=== PATIENT | male | born 1970 | race Caucasian/White ===

== ENCOUNTER → 2017-12-15 14:41 | Outpatient (CLI) | payer OTHER, SELFPAY ==
[2017-12-15 15:39] VITALS: BP 116/76; PULSE 71; RESP 18; TEMP 37.3; O2SAT 99; BMI 31.4
[2017-12-15 16:11] LABS: PTHIN 36.5 pg/mL (18.4-80.1)
[2017-12-15 16:12] LABS: Vitamin D,25 Hydroxy 44.9 ng/mL (19.95-100.01)
[2017-12-15 16:14] LABS: AST(SGOT) 33 U/L (15-37); Alanine Aminotransfer ALT/SGPT 59 U/L (16-61); Alkaline Phosphatase 91 U/L (45-117); Anion Gap 10 (5-15); BUN 21 mg/dL (7-18); BUN/Creat Ratio 34.4 RATIO (10-20); Calcium,Total 8.9 mg/dL (8.5-10.1); Chloride 103 mmol/L (98-107); Creatinine, Serum 0.61 mg/dL (0.70-1.30); EST Glomerular Filtration Rate 150 mL/min (>60); Est Glom Filt Rate - Afr Amer 182 mL/min (>60); Estimated Creatinine Clearance 129.66 ml/min; Globulin 3.9 g/dL (2.2-4.2); Glucose 108 mg/dL (74-106); LDH 144 U/L (87-241); Protein, Total 7.9 g/dL (6.4-8.2); Sodium Level 138 mmol/L (136-145)
[2017-12-18 19:28] LABS: (24 HR) Urine Calcium 252.3 mg/24 HR (42.0-353.0); 24HR UR TOTAL VOLUME 2175 ml; Calcium Urine pH Range 2; Urine Calcium (Random) 11.6 (Not Estab.)
[2017-12-18 19:28] LABS: 24HR. Urine Creatinine 1.14 g/24 HR (0.90-2.10)
[2017-12-21 12:08] LABS: Testosterone, Free 13.95 ng/dL (5.00-21.00)
[2017-12-21 12:38] LABS: Testosterone, % Free 2.56 % (1.50-4.20); Testosterone, Total 545 ng/dL (264-916)
== END ==
PROVIDERS: Internal Medicine Endocrinology, Diabetes & Metabolism; Visit Provider Internal Medicine Gastroenterology
DX: E83.110 Hereditary hemochromatosis (principal); E29.1 Testicular hypofunction; E55.9 Vitamin D deficiency, unspecified; M81.0 Age-related osteoporosis without current pathological fracture
CPT/HCPCS: 80053; 82306; 82340; 82570; 83615; 83970; 84402; 84403; 99195

== ENCOUNTER → 2017-12-29 14:27 | Outpatient (CLI) | payer OTHER, SELFPAY ==
[2017-12-29 15:11] VITALS: TEMP 37.2
== END ==
PROVIDERS: Family Provider Family Medicine; PCP Family Medicine; Visit Provider Internal Medicine Gastroenterology
DX: E83.110 Hereditary hemochromatosis (principal)
CPT/HCPCS: 99195

== ENCOUNTER → 2018-01-12 14:41 | Outpatient (CLI) | payer OTHER, SELFPAY ==
[2018-01-12 14:52] VITALS: BP 109/73; PULSE 71; RESP 18; TEMP 35.7; O2SAT 97; BMI 31.4
[2018-01-12 15:31] VITALS: BP 119/65; PULSE 74; RESP 18; TEMP 36.2; O2SAT 97
== END ==
PROVIDERS: Family Provider Family Medicine; PCP Family Medicine; Visit Provider Internal Medicine Gastroenterology
DX: E83.110 Hereditary hemochromatosis (principal)
CPT/HCPCS: 99195

== ENCOUNTER → 2018-01-26 15:19 | Outpatient (CLI) | payer OTHER, SELFPAY ==
[2018-01-26 16:02] VITALS: BP 121/42; PULSE 79; RESP 18; TEMP 36.7; O2SAT 98
== END ==
PROVIDERS: Family Provider Family Medicine; PCP Family Medicine; Visit Provider Internal Medicine Gastroenterology
DX: E83.110 Hereditary hemochromatosis (principal)
CPT/HCPCS: 99195; A4216

== ENCOUNTER → 2018-02-09 14:00 | Outpatient (CLI) | payer OTHER, SELFPAY ==
[2018-02-09 14:10] VITALS: BP 122/78; PULSE 73; RESP 18; TEMP 36.6; O2SAT 100
[2018-02-09 14:46] LABS: Hematocrit 35.4 % (40-54); Hemoglobin 12.3 g/dl (13.0-16.5); Mean Corp Hgb Conc 34.7 g/gl (32-36); Mean Corpuscular Hgb 35.1 pg (27.0-32.0); Mean Corpuscular Volume 101.1 fL (80-94); Mean Platelet Vol. 10.5 fl (6.2-12.0); Platelet Count 146 K/mm3 (150-450); RBC Distribution Width CV 13.1 % (11.6-14.6); RBC Distribution Width SD 47.3 fl (35.1-43.9); White Blood Count 7.8 K/mm3 (4.4-11.0)
[2018-02-09 14:49] LABS: Scan Indicated on CBC? Y/N NO
[2018-02-09 15:15] LABS: AST(SGOT) 28 U/L (15-37); Alanine Aminotransfer ALT/SGPT 44 U/L (16-61); Albumin, Serum 3.7 g/dL (3.2-5.0); Alkaline Phosphatase 96 U/L (45-117); Anion Gap 7 (5-15); BUN 23 mg/dL (7-18); BUN/Creat Ratio 28.8 RATIO (10-20); Calcium,Total 8.6 mg/dL (8.5-10.1); Chloride 102 mmol/L (98-107); EST Glomerular Filtration Rate 101 mL/min (>60); Est Glom Filt Rate - Afr Amer 123 mL/min (>60); Ferritin 384 ng/mL (26-388); Globulin 3.7 g/dL (2.2-4.2); Glucose 124 mg/dL (74-106); Iron 127 ug/dL (65-175); Iron Binding Capacity,Total 286 ug/dL (250-450); PERCENT IRON SATURATION 44.4 % (15.0-55.0); Potassium 4.3 mmol/L (3.5-5.1); Protein, Total 7.4 g/dL (6.4-8.2); Sodium Level 137 mmol/L (136-145)
== END ==
PROVIDERS: Family Provider Family Medicine; PCP Family Medicine; Visit Provider Internal Medicine Gastroenterology
DX: E83.110 Hereditary hemochromatosis (principal); E83.19 Other disorders of iron metabolism; R94.5 Abnormal results of liver function studies
CPT/HCPCS: 80053; 82728; 83540; 83550; 85027; 99195; A4216

== ENCOUNTER → 2018-02-23 14:00 | Outpatient (CLI) | payer OTHER, SELFPAY ==
[2018-02-23 14:12] VITALS: BP 115/70; PULSE 78; RESP 16
== END ==
PROVIDERS: Family Provider Family Medicine; PCP Family Medicine; Visit Provider Internal Medicine Gastroenterology
DX: E83.110 Hereditary hemochromatosis (principal); E83.19 Other disorders of iron metabolism
CPT/HCPCS: 99195

== ENCOUNTER → 2018-05-24 10:20 | Outpatient (CLI) | payer SELFPAY, OTHER ==
--- NOTE | 2018-05-24 10:30 | US_ITS ---
STUDY: ABDOMINAL ULTRASOUND - RIGHT UPPER QUADRANT REASON FOR VISIT: Male, 47 years old. Hemochromatosis. TECHNIQUE: Ultrasound evaluation of the right upper quadrant was performed with real-time and static lorenzo-scale imaging. TECHNICAL QUALITY: Adequate. COMPARISON: None. FINDINGS: Liver: The liver measures 13.9 cm. There is a heterogeneous echogenicity of the liver. The bile ducts are within normal limits. There is hepatic color flow. The direction of portal flow is hepatopetal. There is no demonstrated mass lesion. Gallbladder: Normal distended gallbladder. The gallbladder wall measures 2 mm. There is a negative sonographic Garcia's sign. There is no pericholecystic fluid. There are no gallstones. Common Bile Duct (C.B.D.): The common bile duct measures 4.6 mm. Pancreas: Normal size of the head, body and proximal tail of the pancreas. The distal tail is obscured by bowel gas. There is normal echogenicity of the pancreas. There is no demonstrated pancreatic mass or cyst. Right Kidney: Normal size of the right kidney. The right kidney measures 10.6 cm. Normal renal cortex. The right cortex measures 1.6 cm. There is no demonstrated renal mass or cyst. There is no right hydronephrosis. US/Liver IMPRESSION: 1. Mild heterogeneity of the echotexture of the liver without mass or other abnormality. 2. Otherwise normal right upper quadrant ultrasound. Electronically Signed: Raymundo Jurado DO at 19:25 EDT Tel [phone], Service support ,
== END ==
PROVIDERS: Family Provider Family Medicine; PCP Family Medicine; Visit Provider Internal Medicine Hematology & Oncology
DX: E83.119 Hemochromatosis, unspecified (principal)
CPT/HCPCS: 76705

== ENCOUNTER → 2018-09-12 16:28 | Outpatient (CLI) | payer OTHER, SELFPAY ==
[2018-09-12 17:11] LABS: Absolute Lymphocyte Count 1.83 X10^3/ul (0.83-4.51); Absolute Neutrophil Count 3.3 X10^3/uL (2.0-7.7); Basophil# 0.03 X10^3/uL; Basophil% 0.5 % (0-1); Eosinophils% 6.5 % (0-5); Hematocrit 37.4 % (40-54); Hemoglobin 13.2 g/dl (13.0-16.5); Lymphocyte # 1.83 X10^3/ul (4.0); Lymphocyte % 29.8 % (19-41); Mean Corp Hgb Conc 35.3 g/gl (32-36); Mean Corpuscular Hgb 34.7 pg (27.0-32.0); Mean Corpuscular Volume 98.4 fL (80-94); Mean Platelet Vol. 10.5 fl (6.2-12.0); Monocyte# 0.55 X10^3/uL; Neutrophil # 3.31 X10^3/uL (2.7-7.7); Neutrophil % 53.9 % (47-70); Platelet Count 131 K/mm3 (150-450); RBC Distribution Width CV 13.2 % (11.6-14.6); RBC Distribution Width SD 45.8 fl (35.1-43.9); White Blood Count 6.1 K/mm3 (4.4-11.0)
[2018-09-12 17:12] LABS: POSITIVE COUNT NO; POSITIVE DIFFERENTIAL NO; POSITIVE MORPHOLOGY NO
[2018-09-12 18:00] LABS: Ferritin 259 ng/mL (26-388); Iron 257 ug/dL (65-175); Iron Binding Capacity,Total 300 ug/dL (250-450); PERCENT IRON SATURATION 85.7 % (15.0-55.0)
[2018-09-14 10:29] LABS: AFP, Tumor Marker 1.1 ng/mL (0.0-8.3)
== END ==
PROVIDERS: Family Provider Family Medicine; PCP Family Medicine; Referring Provider Internal Medicine Hematology & Oncology; Visit Provider Internal Medicine Hematology & Oncology
DX: E83.119 Hemochromatosis, unspecified (principal)
CPT/HCPCS: 36415; 82105; 82728; 83540; 83550; 85025

== ENCOUNTER → 2019-06-08 08:49 | Outpatient (CLI) | payer SELFPAY, OTHER ==
[2019-03-14 13:55] VITALS: BMI 30.7
[2019-05-16 14:35] VITALS: BMI 30.7
--- NOTE | 2019-06-08 08:57 | US_ITS ---
STUDY: ABDOMINAL ULTRASOUND - RIGHT UPPER QUADRANT REASON FOR VISIT: Male, 48 years old. Hemochromatosis TECHNIQUE: Ultrasound evaluation of the right upper quadrant was performed with real-time and static lorenzo-scale imaging. TECHNICAL QUALITY: Adequate. COMPARISON: 05/24/2018 FINDINGS: Liver: The liver measures 14.9 cm. There is normal echogenicity of the liver. The bile ducts are within normal limits. There is hepatic color flow. The direction of portal flow is hepatopetal. There is no demonstrated mass lesion. Gallbladder: Normal distended gallbladder. The gallbladder wall measures 2 mm. There is a negative sonographic Garcia's sign. There is no pericholecystic fluid. There are no gallstones. Common Bile Duct (C.B.D.): The common bile duct measures 4.5 mm. Pancreas: Normal size of the head, body and tail of the pancreas. There is normal echogenicity of the pancreas. There is no demonstrated pancreatic mass or cyst. Right Kidney: Normal size of the right kidney. The right kidney measures 9.3 cm. Normal renal cortex. There is no demonstrated renal mass or cyst. There is no right hydronephrosis. US/Liver IMPRESSION: Normal right upper quadrant ultrasound examination. Electronically Signed: Yamil Kenyon, at 12:58 EDT Tel , Service support ,
[2019-06-08 10:11] LABS: Absolute Neutrophil Count 2.5 X10^3/uL (2.0-7.7); Basophil# 0.03 X10^3/uL; Basophil% 0.7 % (0-1); Eosinophil# 0.28 X10^3/uL; Eosinophils% 6.4 % (0-5); Hematocrit 38.2 % (40-54); Hemoglobin 13.5 g/dL (13.0-16.5); Lymphocyte % 27.3 % (19-41); Mean Corp Hgb Conc 35.3 g/dL (32-36); Mean Corpuscular Hgb 34.4 pg (27.0-32.0); Mean Corpuscular Volume 97.4 fL (80-94); Mean Platelet Vol. 10.4 fl (6.2-12.0); Monocyte% 9.1 % (0-10); NRBC Flagged by Analyzer 0 % (0-5); Neutrophil # 2.48 X10^3/uL (2.7-7.7); Neutrophil % 56.3 % (47-70); Platelet Count 116 K/mm3 (150-450); RBC Distribution Width CV 13.3 % (11.6-14.6); RBC Distribution Width SD 47.6 fl (35.1-43.9); Red Blood Count 3.92 M/mm3 (4.6-6.2); White Blood Count 4.4 K/mm3 (4.4-11.0)
[2019-06-08 10:47] LABS: Ferritin 57 ng/mL (26-388); Iron 239 ug/dL (65-175); Iron Binding Capacity,Total 293 ug/dL (250-450); PERCENT IRON SATURATION 81.6 % (15.0-55.0)
== END ==
PROVIDERS: Family Provider Family Medicine; PCP Family Medicine; Referring Provider Internal Medicine Hematology & Oncology; Visit Provider Internal Medicine Hematology & Oncology
DX: R16.0 Hepatomegaly, not elsewhere classified (principal); E83.119 Hemochromatosis, unspecified
CPT/HCPCS: 36415; 76705; 82105; 82728; 83540; 83550; 85025

== ENCOUNTER → 2019-08-07 16:49 | Outpatient (CLI) | payer OTHER, SELFPAY ==
[2019-06-19 14:54] VITALS: BMI 31.4
[2019-08-07 18:06] LABS: Vitamin D,25 Hydroxy 59.6 ng/mL (29.95-100.01)
[2019-08-07 18:19] LABS: ALB/GLOB Ratio 1.1 RATIO (0.9-2.4); AST(SGOT) 26 U/L (15-37); Alanine Aminotransfer ALT/SGPT 39 U/L (16-61); Albumin, Serum 3.9 g/dL (3.2-5.0); Alkaline Phosphatase 105 U/L (45-117); Anion Gap 8 (5-15); BUN 17 mg/dL (7-18); BUN/Creat Ratio 23.9 RATIO (10-20); Calcium,Total 9.2 mg/dL (8.5-10.1); Chloride 103 mmol/L (98-107); Creatinine, Serum 0.71 mg/dL (0.70-1.30); EST Glomerular Filtration Rate 125 mL/min (>60); Est Glom Filt Rate - Afr Amer 151 mL/min (>60); Globulin 3.7 g/dL (2.2-4.2); Glucose 110 mg/dL (74-106); Potassium 4.1 mmol/L (3.5-5.1); Protein, Total 7.6 g/dL (6.4-8.2); Sodium Level 138 mmol/L (136-145); Thyroid Stim Hormone (TSH) 2.22 uIU/mL (0.358-3.74)
== END ==
PROVIDERS: Family Provider Family Medicine; PCP Family Medicine; Referring Provider Internal Medicine Endocrinology, Diabetes & Metabolism; Visit Provider Internal Medicine Endocrinology, Diabetes & Metabolism
DX: E04.9 Nontoxic goiter, unspecified (principal); M81.0 Age-related osteoporosis without current pathological fracture; E55.9 Vitamin D deficiency, unspecified
CPT/HCPCS: 36415; 80053; 82306; 84443

== ENCOUNTER → 2019-09-04 13:56 | Outpatient (CLI) | payer OTHER, SELFPAY ==
[2019-06-19 14:54] VITALS: BMI 31.4
[2019-09-04] MEDS: Zoledronic Acid 5 MG 100 ML 300 MG IV (15:15)
== END ==
PROVIDERS: Family Provider Family Medicine; PCP Family Medicine; Referring Provider Internal Medicine Endocrinology, Diabetes & Metabolism; Visit Provider Internal Medicine Endocrinology, Diabetes & Metabolism
DX: M81.0 Age-related osteoporosis without current pathological fracture (principal)
CPT/HCPCS: 96365; J3489

== ENCOUNTER → 2019-10-10 16:25 | Outpatient (CLI) | payer OTHER, SELFPAY ==
[2019-09-04 15:16] VITALS: BMI 31.4
[2019-10-10 17:38] LABS: Absolute Lymphocyte Count 2.19 X10^3/uL (0.83-4.51); Absolute Neutrophil Count 5.3 X10^3/uL (2.0-7.7); Basophil# 0.06 X10^3/uL; Basophil% 0.7 % (0-1); Eosinophil# 0.25 X10^3/uL; Eosinophils% 2.9 % (0-5); Hematocrit 41.2 % (40-54); Hemoglobin 14.5 g/dL (13.0-16.5); Lymphocyte # 2.19 X10^3/ul (4.0); Lymphocyte % 25.3 % (19-41); Mean Corp Hgb Conc 35.2 g/dL (32-36); Mean Corpuscular Hgb 34.1 pg (27.0-32.0); Mean Corpuscular Volume 96.9 fL (80-94); Mean Platelet Vol. 10.2 fl (6.2-12.0); Monocyte# 0.73 X10^3/uL; Monocyte% 8.4 % (0-10); NRBC Flagged by Analyzer 0 % (0-5); Neutrophil # 5.25 X10^3/uL (2.7-7.7); Neutrophil % 60.8 % (47-70); Platelet Count 178 K/mm3 (150-450); RBC Distribution Width CV 13.1 % (11.6-14.6); RBC Distribution Width SD 46.5 fl (35.1-43.9); Red Blood Count 4.25 M/mm3 (4.6-6.2); White Blood Count 8.6 K/mm3 (4.4-11.0)
[2019-10-10 18:11] LABS: Ferritin 34 ng/mL (26-388); Iron 97 ug/dL (65-175); Iron Binding Capacity,Total 311 ug/dL (250-450); PERCENT IRON SATURATION 31.2 % (15.0-55.0)
== END ==
PROVIDERS: Family Provider Family Medicine; PCP Family Medicine; Referring Provider Internal Medicine Hematology & Oncology; Visit Provider Internal Medicine Hematology & Oncology
DX: E83.119 Hemochromatosis, unspecified (principal)
CPT/HCPCS: 36415; 82728; 83540; 83550; 85025

== ENCOUNTER → 2019-11-16 08:45 | Outpatient (CLI) | payer OTHER, SELFPAY ==
[2019-10-16 14:12] VITALS: BMI 31.5
[2019-11-16 09:41] LABS: Absolute Lymphocyte Count 1.09 X10^3/uL (0.83-4.51); Absolute Neutrophil Count 2.4 X10^3/uL (2.0-7.7); Basophil# 0.03 X10^3/uL; Basophil% 0.7 % (0-1); Eosinophil# 0.18 X10^3/uL; Eosinophils% 4.4 % (0-5); Hematocrit 37.8 % (40-54); Hemoglobin 13.4 g/dL (13.0-16.5); Lymphocyte # 1.09 X10^3/ul (4.0); Lymphocyte % 26.4 % (19-41); Mean Corp Hgb Conc 35.4 g/dL (32-36); Mean Corpuscular Hgb 33.7 pg (27.0-32.0); Mean Platelet Vol. 10.5 fl (6.2-12.0); Monocyte# 0.43 X10^3/uL; Monocyte% 10.4 % (0-10); NRBC Flagged by Analyzer 0 % (0-5); Neutrophil # 2.38 X10^3/uL (2.7-7.7); Neutrophil % 57.6 % (47-70); Platelet Count 125 K/mm3 (150-450); RBC Distribution Width CV 12.9 % (11.6-14.6); RBC Distribution Width SD 44.9 fl (35.1-43.9); Red Blood Count 3.98 M/mm3 (4.6-6.2); White Blood Count 4.1 K/mm3 (4.4-11.0)
[2019-11-16 10:12] LABS: Ferritin 46 ng/mL (26-388); Iron 161 ug/dL (65-175); Iron Binding Capacity,Total 333 ug/dL (250-450); PERCENT IRON SATURATION 48.3 % (15.0-55.0)
== END ==
PROVIDERS: Family Provider Family Medicine; PCP Family Medicine; Referring Provider Internal Medicine Hematology & Oncology; Visit Provider Internal Medicine Hematology & Oncology
DX: E83.119 Hemochromatosis, unspecified (principal)
CPT/HCPCS: 36415; 82728; 83540; 83550; 85025

== ENCOUNTER → 2019-11-27 10:31 | Outpatient (CLI) | payer OTHER, SELFPAY ==
[2019-11-27 10:12] VITALS: BMI 31.4
--- NOTE | 2019-11-27 10:32 | RAD_ITS ---
STUDY: X-RAY - LEFT KNEE REASON FOR EXAM: Pain, no specific injury. TECHNIQUE: 4 view(s) of the knee. COMPARISON: None. FINDINGS: There is a medial femorotibial compartment arthroplasty with chronic appearing depression of the medial tibial plateau without demonstrated periprosthetic fracture or prosthetic loosening. There are marginal osteophytes and mild joint space narrowing of the lateral femorotibial compartment. There is a patellofemoral arthroplasty without evidence of complication. There is a small joint effusion. RAD/Knee 4 or More Views IMPRESSION: Medial femorotibial compartment arthroplasty with chronic appearing depression of the medial tibial plateau. Patellofemoral arthroplasty without evidence of complication. Mild arthrosis of the lateral femorotibial compartment. Small joint effusion. Electronically Signed: Ross Lopes MD at 15:30 EST Tel , Service support ,
--- NOTE | 2019-11-27 10:32 | RAD_ITS ---
STUDY: X-RAY - RIGHT KNEE REASON FOR EXAM: Pain, no specific injury. TECHNIQUE: 4 view(s) of the knee. COMPARISON: None. FINDINGS: There is subchondral cystic change of the medial femoral condyle. There is subchondral sclerosis of the medial tibial plateau. Normal proximal tibiofibular articulation. There are marginal osteophytes and moderate joint space narrowing of the medial femorotibial compartment. There are marginal osteophytes without joint space narrowing of the lateral femorotibial compartment. There is a unicompartmental patellofemoral arthroplasty without demonstrated complication. The soft tissue structures are unremarkable. RAD/Knee 4 or More Views IMPRESSION: Arthrosis of the medial femorotibial compartment. Patellofemoral unicompartmental arthroplasty. Electronically Signed: Ross Lopes MD at 15:23 EST Tel , Service support ,
== END ==
LOC: HPRAD 10:32
PROVIDERS: PCP Family Medicine; Referring Provider Orthopaedic Surgery; Visit Provider Orthopaedic Surgery
DX: M25.561 Pain in right knee (principal); M25.562 Pain in left knee
CPT/HCPCS: 73564

== ENCOUNTER → 2020-04-04 07:50 | Outpatient (CLI) | payer OTHER, SELFPAY ==
[2019-11-27 10:12] VITALS: BMI 31.4
[2020-04-04 08:19] LABS: Absolute Lymphocyte Count 1.08 X10^3/uL (0.83-4.51); Absolute Neutrophil Count 1.9 X10^3/uL (2.0-7.7); Basophil# 0.03 X10^3/uL; Basophil% 0.8 % (0-1); Eosinophil# 0.28 X10^3/uL; Eosinophils% 7.3 % (0-5); Hematocrit 37.7 % (40-54); Lymphocyte # 1.08 X10^3/ul (4.0); Lymphocyte % 28.3 % (19-41); Mean Corp Hgb Conc 34.5 g/dL (32-36); Mean Corpuscular Hgb 34.4 pg (27.0-32.0); Mean Corpuscular Volume 99.7 fL (80-94); Mean Platelet Vol. 10.3 fl (6.2-12.0); Monocyte# 0.49 X10^3/uL; Monocyte% 12.8 % (0-10); NRBC Flagged by Analyzer 0 % (0-5); Neutrophil # 1.92 X10^3/uL (2.7-7.7); Neutrophil % 50.3 % (47-70); Platelet Count 134 K/mm3 (150-450); RBC Distribution Width CV 14.1 % (11.6-14.6); RBC Distribution Width SD 51.3 fl (35.1-43.9); Red Blood Count 3.78 M/mm3 (4.6-6.2); White Blood Count 3.8 K/mm3 (4.4-11.0)
[2020-04-04 08:50] LABS: Ferritin 70 ng/mL (26-388); Iron 238 ug/dL (65-175); Iron Binding Capacity,Total 294 ug/dL (250-450)
[2020-04-18 11:17] LABS: AFP, Tumor Marker < 0.9 ng/mL (0.0-8.3)
== END ==
PROVIDERS: PCP Family Medicine; Visit Provider Internal Medicine Hematology & Oncology
DX: E83.119 Hemochromatosis, unspecified (principal)
CPT/HCPCS: 36415; 82105; 82677; 82728; 83540; 83550; 84702; 85025

== ENCOUNTER → 2020-06-02 16:32 | Outpatient (CLI) | payer OTHER, SELFPAY ==
[2020-04-09 14:52] VITALS: BMI 30.4
[2020-06-02 18:10] LABS: ALB/GLOB Ratio 0.9 RATIO (0.9-2.4); AST(SGOT) 23 U/L (15-37); Alanine Aminotransfer ALT/SGPT 33 U/L (16-61); Albumin, Serum 4.1 g/dL (3.2-5.0); Alkaline Phosphatase 88 U/L (45-117); Anion Gap 5 (5-15); BUN 17 mg/dL (7-18); BUN/Creat Ratio 26.4 RATIO (10-20); Calcium,Total 9.5 mg/dL (8.5-10.1); Chloride 105 mmol/L (98-107); Creatinine, Serum 0.64 mg/dL (0.70-1.30); EST Glomerular Filtration Rate 140 mL/min (>60); Est Glom Filt Rate - Afr Amer 169 mL/min (>60); Globulin 4.4 g/dL (2.2-4.2); Glucose 115 mg/dL (74-106); Potassium 3.9 mmol/L (3.5-5.1); Protein, Total 8.5 g/dL (6.4-8.2); Sodium Level 137 mmol/L (136-145)
[2020-06-02 18:22] LABS: Vitamin D,25 Hydroxy 131.7 ng/mL
== END ==
PROVIDERS: PCP Family Medicine
DX: M81.0 Age-related osteoporosis without current pathological fracture (principal); E55.9 Vitamin D deficiency, unspecified
CPT/HCPCS: 36415; 80053; 82306

== ENCOUNTER → 2020-07-04 08:22 | Outpatient (CLI) | payer SELFPAY ==
[2020-04-09 14:35] VITALS: BMI 31.4
[2020-04-09 14:52] VITALS: BMI 30.4
--- NOTE | 2020-07-04 08:41 | US_ITS ---
STUDY: ABDOMINAL ULTRASOUND - RIGHT UPPER QUADRANT REASON FOR VISIT: Male, 50 years old HEMOCHROMATOSIS, SCREENING FOR HCC TECHNIQUE: Ultrasound evaluation of the right upper quadrant was performed with real-time and static lorenzo-scale imaging. TECHNICAL QUALITY: Adequate. COMPARISON: None. FINDINGS: Liver: The liver measures 16.1 cm. There is normal echogenicity of the liver. The bile ducts are within normal limits. There is hepatic color flow. The direction of portal flow is hepatopetal. There is no demonstrated mass lesion. Gallbladder: Normal distended gallbladder. The gallbladder wall measures 2 mm. There is a negative sonographic Garcia''s sign. There is no pericholecystic fluid. There are no gallstones. Common Bile Duct (C.B.D.): The common bile duct measures 4 mm. Pancreas: Normal size of the head, body and tail of the pancreas. There is normal echogenicity of the pancreas. There is no demonstrated pancreatic mass or cyst. Right Kidney: Normal size of the right kidney. The right kidney measures 10.0 cm. Normal renal cortex. The right cortex measures 1.8 cm. There is no demonstrated renal mass or cyst. There is no right hydronephrosis. US/Liver IMPRESSION: Normal right upper quadrant ultrasound examination. Electronically Signed: Hua Brannon MD at 8:03 EDT Tel , Service support ,
[2020-07-04 09:16] LABS: Absolute Lymphocyte Count 1.03 X10^3/uL (0.83-4.51); Absolute Neutrophil Count 1.9 X10^3/uL (2.0-7.7); Basophil# 0.02 X10^3/uL; Basophil% 0.6 % (0-1); Eosinophil# 0.24 X10^3/uL; Eosinophils% 6.7 % (0-5); Hematocrit 36.8 % (40-54); Hemoglobin 12.9 g/dL (13.0-16.5); Lymphocyte # 1.03 X10^3/ul (4.0); Lymphocyte % 28.6 % (19-41); Mean Corp Hgb Conc 35.1 g/dL (32-36); Mean Corpuscular Hgb 33.5 pg (27.0-32.0); Mean Corpuscular Volume 95.6 fL (80-94); Mean Platelet Vol. 10.1 fl (6.2-12.0); Monocyte# 0.39 X10^3/uL; Monocyte% 10.8 % (0-10); NRBC Flagged by Analyzer 0 % (0-5); Neutrophil % 52.7 % (47-70); Platelet Count 111 K/mm3 (150-450); RBC Distribution Width CV 13.4 % (11.6-14.6); Red Blood Count 3.85 M/mm3 (4.6-6.2); White Blood Count 3.6 K/mm3 (4.4-11.0)
[2020-07-04 09:35] LABS: Ferritin 25 ng/mL (26-388); Iron 242 ug/dL (65-175); Iron Binding Capacity,Total 295 ug/dL (250-450)
== END ==
PROVIDERS: PCP Family Medicine; Referring Provider Internal Medicine Hematology & Oncology; Visit Provider Internal Medicine Hematology & Oncology
DX: E83.119 Hemochromatosis, unspecified (principal)
CPT/HCPCS: 36415; 76705; 82105; 82677; 82728; 83540; 83550; 84702; 85025

== ENCOUNTER → 2020-08-22 08:36 | Outpatient (CLI) | payer OTHER, SELFPAY ==
[2020-08-13 14:52] VITALS: BMI 31.3
[2020-08-22 09:17] LABS: Anion Gap 7 (5-15); BUN 17 mg/dL (7-18); Chloride 103 mmol/L (98-107); Creatinine, Serum 0.77 mg/dL (0.70-1.30); EST Glomerular Filtration Rate 113 mL/min (>60); Est Glom Filt Rate - Afr Amer 137 mL/min (>60); Glucose 237 mg/dL (74-106); Potassium 4.3 mmol/L (3.5-5.1); Sodium Level 136 mmol/L (136-145)
[2020-08-22 09:28] LABS: Vitamin D,25 Hydroxy 65.9 ng/mL
== END ==
PROVIDERS: PCP Family Medicine; Referring Provider Internal Medicine Endocrinology, Diabetes & Metabolism; Visit Provider Internal Medicine Endocrinology, Diabetes & Metabolism
DX: E55.9 Vitamin D deficiency, unspecified (principal)
CPT/HCPCS: 36415; 80048; 82306

== ENCOUNTER → 2020-10-23 14:51 | Outpatient (CLI) | payer OTHER, SELFPAY ==
[2020-08-13 14:52] VITALS: BMI 31.3
[2020-10-23 15:00] VITALS: BP 109/73; PULSE 75; RESP 16; TEMP 37.1; O2SAT 100; BMI 31.3
[2020-10-23] MEDS: Zoledronic Acid 5 MG 100 ML 300 MG IV (15:10)
[2020-10-23] MEDS: 0.9% NaCl Peripheral Flush Adult/Peds IV (15:12)
[2020-10-23] MEDS: 0.9% NaCl IVPB Med Flush (250 mL) 15 ML IV (15:13)
[2020-10-23 15:51] VITALS: BP 132/75; PULSE 78; RESP 16; TEMP 36.6; O2SAT 98
== END ==
PROVIDERS: PCP Family Medicine; Referring Provider Internal Medicine Endocrinology, Diabetes & Metabolism; Visit Provider Internal Medicine Endocrinology, Diabetes & Metabolism
DX: M81.0 Age-related osteoporosis without current pathological fracture (principal)
CPT/HCPCS: 96365; J7050; A4216; J3489

== ENCOUNTER → 2020-12-01 12:27 | Outpatient (CLI) | payer OTHER, SELFPAY ==
[2020-10-23 15:00] VITALS: BMI 31.3
[2020-12-01 13:33] LABS: Absolute Lymphocyte Count 1.19 X10^3/uL (0.83-4.51); Absolute Neutrophil Count 4.2 X10^3/uL (2.0-7.7); Basophil# 0.03 X10^3/uL; Basophil% 0.5 % (0-1); Eosinophil# 0.16 X10^3/uL; Eosinophils% 2.6 % (0-5); Hemoglobin 13.2 g/dL (13.0-16.5); Lymphocyte # 1.19 X10^3/ul (4.0); Lymphocyte % 19.6 % (19-41); Mean Corp Hgb Conc 35.7 g/dL (32-36); Mean Corpuscular Hgb 33.8 pg (27.0-32.0); Mean Corpuscular Volume 94.9 fL (80-94); Mean Platelet Vol. 10.5 fl (6.2-12.0); Monocyte# 0.51 X10^3/uL; Monocyte% 8.4 % (0-10); NRBC Flagged by Analyzer 0 % (0-5); Neutrophil # 4.15 X10^3/uL (2.7-7.7); Neutrophil % 68.2 % (47-70); Platelet Count 129 K/mm3 (150-450); RBC Distribution Width CV 13.9 % (11.6-14.6); RBC Distribution Width SD 47.9 fl (35.1-43.9); White Blood Count 6.1 K/mm3 (4.4-11.0)
[2020-12-01 14:04] LABS: Ferritin 23 ng/mL (26-388); Iron 128 ug/dL (65-175); Iron Binding Capacity,Total 373 ug/dL (250-450); PERCENT IRON SATURATION 34.3 % (15.0-55.0)
[2020-12-01 20:40] LABS: Xtra Tube EP Lab EXTRA TUBE
[2020-12-02 15:36] LABS: AFP, Tumor Marker < 0.9 ng/mL (0.0-8.3)
== END ==
PROVIDERS: PCP Family Medicine; Referring Provider Internal Medicine Hematology & Oncology; Visit Provider Internal Medicine Hematology & Oncology
DX: E83.119 Hemochromatosis, unspecified (principal)
CPT/HCPCS: 36415; 82105; 82728; 83540; 83550; 85025

== ENCOUNTER → 2021-03-06 07:51 | Outpatient (CLI) | payer OTHER, SELFPAY ==
[2020-12-10 14:37] VITALS: BMI 32.3
[2021-03-06 08:24] LABS: Absolute Lymphocyte Count 1.13 X10^3/uL (0.83-4.51); Absolute Neutrophil Count 2.7 X10^3/uL (2.0-7.7); Basophil# 0.04 X10^3/uL; Basophil% 0.9 % (0-1); Eosinophils% 4.5 % (0-5); Hemoglobin 13.9 g/dL (13.0-16.5); Lymphocyte # 1.13 X10^3/ul (0.83-4.51); Lymphocyte % 25.2 % (19-41); Mean Corp Hgb Conc 34.8 g/dL (32-36); Mean Corpuscular Hgb 33.3 pg (27.0-32.0); Mean Corpuscular Volume 95.9 fL (80-94); Mean Platelet Vol. 10.1 fl (6.2-12.0); Monocyte% 8.9 % (0-10); NRBC Flagged by Analyzer 0 % (0-5); Neutrophil # 2.67 X10^3/uL (2.7-7.7); Neutrophil % 59.6 % (47-70); Platelet Count 109 K/mm3 (150-450); RBC Distribution Width CV 13.5 % (11.6-14.6); RBC Distribution Width SD 47.6 fl (35.1-43.9); Red Blood Count 4.17 M/mm3 (4.6-6.2); White Blood Count 4.5 K/mm3 (4.4-11.0)
[2021-03-06 08:51] LABS: ALB/GLOB Ratio 1.1 RATIO (0.9-2.4); AST(SGOT) 20 U/L (15-37); Alanine Aminotransfer ALT/SGPT 35 U/L (16-61); Alkaline Phosphatase 69 U/L (45-117); Anion Gap 4 (5-15); BUN 17 mg/dL (7-18); BUN/Creat Ratio 23.3 RATIO (10-20); Calcium,Total 8.9 mg/dL (8.5-10.1); Chloride 105 mmol/L (98-107); Creatinine, Serum 0.73 mg/dL (0.70-1.30); EST Glomerular Filtration Rate 121 mL/min (>60); Est Glom Filt Rate - Afr Amer 146 mL/min (>60); Globulin 3.8 g/dL (2.2-4.2); Glucose 204 mg/dL (74-106); Potassium 4.4 mmol/L (3.5-5.1); Protein, Total 7.8 g/dL (6.4-8.2); Sodium Level 136 mmol/L (136-145)
[2021-03-06 08:53] LABS: Ferritin 32 ng/mL (26-388); Iron 176 ug/dL (65-175); Iron Binding Capacity,Total 306 ug/dL (250-450); PERCENT IRON SATURATION 57.5 % (15.0-55.0)
[2021-03-08 09:28] LABS: Vitamin D,25 Hydroxy 93.8 ng/mL
== END ==
PROVIDERS: Internal Medicine Hematology & Oncology; PCP Family Medicine; Referring Provider Internal Medicine Endocrinology, Diabetes & Metabolism; Visit Provider Internal Medicine Endocrinology, Diabetes & Metabolism
DX: E83.119 Hemochromatosis, unspecified (principal); M81.0 Age-related osteoporosis without current pathological fracture
CPT/HCPCS: 36415; 80053; 82306; 82728; 83540; 83550; 85025

== ENCOUNTER → 2021-10-08 07:20 | Outpatient (CLI) | payer SELFPAY, OTHER ==
[2021-03-11 15:03] VITALS: BMI 31.1
--- NOTE | 2021-10-08 07:40 | US_ITS ---
STUDY: ABDOMINAL ULTRASOUND - RIGHT UPPER QUADRANT REASON FOR VISIT: Male, 51 years old SCREEN FOR HCC . History of hemochromatosis. TECHNIQUE: Ultrasound evaluation of the right upper quadrant was performed with real-time and static lorenzo-scale imaging. TECHNICAL QUALITY: Adequate. COMPARISON: Comparison is made with prior study dated 07/04/2020. FINDINGS: Liver: The liver measures 15.9 cm. There is a heterogeneous echogenicity of the liver. The bile ducts are within normal limits. There is hepatic color flow. The direction of portal flow is hepatopetal. Questionable 1.9 cm hypoechoic nodule in the dome of the right lobe of the liver. Correlation with the CT scan of the abdomen is recommended for further evaluation. Gallbladder: Normal distended gallbladder. The gallbladder wall measures 1.9 mm. There is a negative sonographic Garcia''s sign. There is no pericholecystic fluid. There are no gallstones. Common Bile Duct (C.B.D.): The common bile duct measures 4.3 mm. Pancreas: Normal size of the head, body and tail of the pancreas. There is increased echogenicity of the pancreas. There is no demonstrated pancreatic mass or cyst. Right Kidney: Normal size of the right kidney. The right kidney measures 9.6 cm x 6.1 cm x 5.1 cm. Normal renal cortex. The right cortex measures 2.2 cm. There is no demonstrated renal mass or cyst. There is no right hydronephrosis. US/Liver IMPRESSION: Heterogeneous appearance of the liver with a questionable 1.9 cm x 1.6 cm hypoechoic nodule in the dome of the right lobe of the liver. Correlation with a enhanced and unenhanced CT scan of the abdomen is recommended. Electronically Signed: Maco Kilgore MD at 12:40 EST , Service support ,
[2021-10-08 08:03] LABS: Absolute Neutrophil Count 2.2 X10^3/uL (2.0-7.7); Basophil# 0.03 X10^3/uL; Basophil% 0.7 % (0-1); Eosinophil# 0.12 X10^3/uL; Hemoglobin 13.4 g/dL (13.0-16.5); Lymphocyte % 29.9 % (19-41); Mean Corp Hgb Conc 37.2 g/dL (32-36); Mean Corpuscular Hgb 34.9 pg (27.0-32.0); Mean Corpuscular Volume 93.8 fL (80-94); Mean Platelet Vol. 9.9 fl (6.2-12.0); Monocyte# 0.35 X10^3/uL; Monocyte% 8.7 % (0-10); NRBC Flagged by Analyzer 0 % (0-5); Neutrophil # 2.24 X10^3/uL (2.7-7.7); POSITIVE MORPHOLOGY YES; Platelet Count 129 K/mm3 (150-450); RBC Distribution Width CV 13.7 % (11.6-14.6); RBC Distribution Width SD 46.7 fl (35.1-43.9); Red Blood Count 3.84 M/mm3 (4.6-6.2)
[2021-10-08 08:04] LABS: Differential Indicated SCAN CRITERIA MET
[2021-10-08 08:28] LABS: Reactive Lymphocyte RARE
[2021-10-08 08:39] LABS: ALB/GLOB Ratio 0.8 RATIO (0.9-2.4); AST(SGOT) 27 U/L (15-37); Alanine Aminotransfer ALT/SGPT 37 U/L (16-61); Albumin, Serum 3.8 g/dL (3.2-5.0); Alkaline Phosphatase 70 U/L (45-117); Anion Gap 5 (5-15); BUN 13 mg/dL (7-18); BUN/Creat Ratio 18.3 RATIO (10-20); Calcium,Total 9.4 mg/dL (8.5-10.1); Chloride 105 mmol/L (98-107); Creatinine, Serum 0.71 mg/dL (0.70-1.30); EST Glomerular Filtration Rate 124 mL/min (>60); Est Glom Filt Rate - Afr Amer 150 mL/min (>60); Globulin 4.6 g/dL (2.2-4.2); Glucose 173 mg/dL (74-106); Potassium 4.4 mmol/L (3.5-5.1); Protein, Total 8.4 g/dL (6.4-8.2); Sodium Level 139 mmol/L (136-145)
[2021-10-08 08:43] LABS: Ferritin 78 ng/mL (26-388); Iron 181 ug/dL (65-175)
[2021-10-08 08:45] LABS: Iron Binding Capacity,Total 305 ug/dL (250-450)
[2021-10-09 14:04] LABS: AFP, Tumor Marker < 0.9 ng/mL (0.0-8.3); Transferrin 240 mg/dL (177-329)
== END ==
PROVIDERS: Internal Medicine Endocrinology, Diabetes & Metabolism; PCP Family Medicine; Referring Provider Internal Medicine Hematology & Oncology; Visit Provider Internal Medicine Hematology & Oncology
DX: E83.119 Hemochromatosis, unspecified (principal); M81.0 Age-related osteoporosis without current pathological fracture; E55.9 Vitamin D deficiency, unspecified
CPT/HCPCS: 36415; 76705; 80053; 82105; 82306; 82728; 83540; 83550; 84466; 85025

== ENCOUNTER → 2021-10-14 14:58 | Outpatient (CLI) | payer OTHER, SELFPAY ==
[2021-10-14] MEDS: Zoledronic Acid 5 MG 100 ML 300 MG IV (16:00)
[2021-10-14 16:22] VITALS: BP 121/80; PULSE 68; RESP 16; TEMP 37.1; O2SAT 98
== END ==
PROVIDERS: PCP Family Medicine
DX: M81.8 Other osteoporosis without current pathological fracture (principal)
CPT/HCPCS: 96365; J3489

== ENCOUNTER → 2021-10-22 16:50 | Outpatient (CLI) | payer SELFPAY ==
--- NOTE | 2021-10-22 16:51 | MRI_ITS ---
STUDY: MRI ABDOMEN WITH AND WITHOUT CONTRAST REASON FOR EXAM: Male, 51 years old. LIVER NODULE ON U/S -- HAS STEEL IN LEGS TECHNIQUE: Standardized fat and water weighted pulse sequences were obtained in all 3 orthogonal planes post contrast administration. IV DOTAREM 12mL was administered for the contrast portion of the examination. COMPARISON: None. FINDINGS: The visualized lung bases are unremarkable. The visualized portions of the heart are within normal limits. There is slightly decreased T2 intensity of the liver compatible with known hemachromatosis. The hepatic parenchyma is slightly heterogeneous. No suspicious focal mass. . Normal gallbladder and extrahepatic biliary system. The spleen is enlarged measuring 15.9 cm in craniocaudal dimension. Normal pancreas. Normal bilateral adrenal glands. Normal right kidney. Normal left kidney. Normal visualized stomach. Normal small intestine. Normal colon. There is diffuse atherosclerotic calcification of the abdominal aorta, without a demonstrated aneurysm. Normal inferior vena cava. Normal retroperitoneum. Normal abdominal wall. There are diffuse degenerative changes of the visualized lumbar spine. MRI/MRI Abd WITH and W/O Contrast IMPRESSION: Slightly heterogeneous liver with decreased T2 intensity compatible with known hemochromatosis. No suspicious arterially hyperenhancing mass. Moderate splenomegaly. Electronically Signed: Matteo Gupta MD at 22:57 EST Tel , Service support ,
== END ==
PROVIDERS: PCP Family Medicine; Visit Provider Internal Medicine Hematology & Oncology
DX: E83.110 Hereditary hemochromatosis (principal); K76.89 Other specified diseases of liver
CPT/HCPCS: 74183; A9575

== ENCOUNTER → 2022-04-29 | Outpatient (CLI) | payer OTHER, SELFPAY ==
[2022-04-29 17:51] LABS: AST(SGOT) 22 U/L (15-37); Alanine Aminotransfer ALT/SGPT 36 U/L (16-61); Albumin, Serum 3.9 g/dL (3.2-5.0); Alkaline Phosphatase 74 U/L (45-117); Anion Gap 7 (5-15); BUN 14 mg/dL (7-18); BUN/Creat Ratio 19.1 RATIO (10-20); Calcium,Total 9.1 mg/dL (8.5-10.1); Chloride 106 mmol/L (98-107); Creatinine, Serum 0.73 mg/dL (0.70-1.30); EST Glomerular Filtration Rate 119 mL/min (>60); Est Glom Filt Rate - Afr Amer 145 mL/min (>60); Globulin 3.8 g/dL (2.2-4.2); Glucose 114 mg/dL (74-106); Potassium 3.7 mmol/L (3.5-5.1); Protein, Total 7.7 g/dL (6.4-8.2); Sodium Level 137 mmol/L (136-145)
[2022-04-29 17:52] LABS: Vitamin D,25 Hydroxy 37.5 ng/mL
== END | disposition home or self-care (01) ==
LOC: LAB 16:53
PROVIDERS: PCP Family Medicine; Visit Provider Internal Medicine Endocrinology, Diabetes & Metabolism
DX: M81.0 Age-related osteoporosis without current pathological fracture (principal)
CPT/HCPCS: 36415; 80053; 82306

== ENCOUNTER 2022-10-07 06:34 | Day surgery (SDC) | payer SELFPAY, OTHER ==
[2022-10-07] MEDS: Lactated Ringers 1,000 ML 15 ML IV (06:50)
[2022-10-07 07:05] VITALS: BP 123/70; PULSE 71; RESP 16; TEMP 36.8; O2SAT 95; BMI 29.7
--- NOTE | 2022-10-07 07:30 | COLBX_PTH ---
PATIENT: RACHANA BARROS LOC: [facility] U#:[id number] AGE/SX: 52/M ROOM: RE10/07/[address]: Dr. Peter Solis MD : 1970 BED: DIS: 10/07/2022 SPEC #: [id number] RECD: 10/07/22 11:03 STATUS: SHANICE OLEARY #: [id number] ANGEL: 10/07/22 07:[address]: Peter Solis DEPT: SURGICAL PATHOLOGY RECD BY: Ness Arnold ENTERED: 10/07/22 12:51 SP TYPE: COLON BX OTHR DR: Dr. Michele Sanchez, DO Tissues: Rectum, NOS Procedures: Surgery Specimen Level IV HEADER OPERATION: Colonoscopy ? open access (MAC) hot snare PRE-OP DIAGNOSIS: Colon cancer screening TISSUE SUBMITTED: Rectal polyp MICROSCOPIC DIAGNOSIS Rectal polyp, biopsy: Fecal debris. See comment. AM:tracy 10/10/2022 COMMENT Colonic mucosa is not represented in the biopsy. Clinical correlation is suggested. MICROSCOPIC DESCRIPTION Slides are reviewed. GROSS DESCRIPTION Received in fixative is one container labeled with the patient's name and designated rectal polyp. The specimen consists of dark jett mucoid material aggregating to 0.5 x 0.3 x <0.1 cm. The specimen is totally submitted in one cassette. / AM:tracy 10/07/2022 TC:5 CPT: 19063
--- NOTE | 2022-10-07 07:30 | H&P.OPEN ---
HPI - General HPI Narrative RACHANA BARROS, is a 52 M who presents for screening colonoscopy. Patient has never had a colonoscopy in the past. He denies any abdominal pain or blood in the stool. He says his mother had a partial colectomy for polyps but is not sure if it was cancerous. [facility] Medical History Achondroplasia Arthritis BILATERAL KNEE SURGERIES Colon cancer screening Diabetes Former smoker Hemochromatosis Osteoporosis Wears glasses Home Medications aspirin 81 mg chewable tablet 81 mg PO DAILY@0800 12/29/17 [History Last Taken Unknown] calcium carbonate 500 mg calcium (1,250 mg) tablet 500 mg PO DAILY 12/29/17 [History Last Taken Unknown] cinnamon bark 500 mg capsule 2,000 mg PO BID 12/29/17 [History Last Taken Unknown] metformin 1,000 mg tablet 1,000 mg PO BIDCM 12/29/17 [History Last Taken Unknown] cholecalciferol (vitamin D3) 25 mcg (1,000 unit) tablet 25 mcg PO DAILY 10/14/21 [History Last Taken Unknown] Allergy/AdvReac Type Severity Reaction Status Date / Time No Known Allergies Allergy Verified 10/05/22 10:21 Family History (Updated 08/29/22 @ 10:48 by Elena Dela Cruz) Brother Lymphoma Mother Colon cancer Colon polyps Surgical History History of ankle surgery History of total right knee replacement Social History household members: spouse housing: house number of children: 2 Smoking Status: Former smoker Tobacco: How many years used: 19 how long ago did patient quit smoking: stopped snuff 6 months ago second hand exposure: No alcohol intake: never substance use type: does not use brenna/sikh: Reid do you feel safe at home: Yes Past Medical/Surgical History Planned Operation Planned Operative Procedure/s: CSCOPE Previous Hospitalizations/Surgeries HX Hospitalizations: No HX of Surgeries: hereditary hemachromatosis Any Problems With Anesthesia: No You/Your Family Experience Fever (Hyperthermia) With Anes: No Cholinesterase deficiency: No Cardiovascular Hx Hypertension: No Respiratory Hx Sleep Apnea: No Hx Respiratory Tract Infection/Cold (presently): No Do You Snore Loudly (louder than talking or can be heard): No Do You Often Feel Tired/ Fatigued/ Sleepy Dring Daytime?: No Has Anyone Observed You Stop Breathing During Sleep?: No Result (for STOP score): Negative Smoking Status: Former smoker Neurological Hx Seizures: No Does patient have nerve stimulator: No Genitourinary Hx Renal Disease: No Endocrine Hx Diabetes: Yes Miscellaneous Recent Exposure to Contagious Disease: No Allergies No Known Allergies Allergy (Verified 10/05/22 10:21) REVIEWED ON 04-11-18 Discharge Is Pt Admitted From a [facility], or a Correction: No After D/C, Where Do you Plan to Go: Return Home Vital Signs Vital Signs Vital Signs: 10/07/22 07:05 10/07/22 07:05 Temperature 98.3 F Temperature Source Temporal Pulse Rate 71 Respiratory Rate 16 Respiratory Pattern Normal Blood Pressure 123/70 H Blood Pressure Mean 87 Blood Pressure Source Monitor Blood Pressure Position Semi-Fowlers Blood Pressure Location Right Arm Pulse Ox 95 Oxygen Delivery Method Room Air Weight Weight: 123 lb 7.342 oz Body Mass Index (BMI) 29.7 Physical Exam Const alert and oriented x3 HEENT normocephalic Eyes PERRL Resp normal respiratory effort and normal air movement Cardio regular rate and regular rhythm GI soft to palpation, non-tender and non-distended Extremity normal to inspection Assessment & Plan Assessment/Plan (1) Colon cancer screening: PLAN: I explained endoscopy in detail to the patient. I explained the risks including but not limited to stroke or heart attack with anesthesia, perforation of the GI tract, bleeding, infection. I explained that any of these could necessitate further emergency surgery. The patient understands and all questions were answered sufficiently. The patient wishes to proceed with procedure. Peter Solis MD Pager: [facility] [address] [place] [address], [address] [place] [address] Office: Surgery Risks - Colonoscopy Risks Include but are not Limited To: Risks include but are not limited to: Bleeding, perforation requiring further surgery, inability to complete colonoscopy requiring barium enema.
[2022-10-07 07:50] LABS: Bedside Glucose 285 mg/dL (74-106)
[2022-10-07 07:55] VITALS: BP 123/70; BP 97/70; PULSE 69; RESP 16; TEMP 36.3; O2SAT 95
--- NOTE | 2022-10-07 07:56 | OP.COLON_ITS ---
Patient Name: Tk Tamez Procedure Date: 10/07/2022 7:22 AM Date of : 1970 Age: 52 Procedure: Colonoscopy Indications: Screening for colorectal malignant neoplasm Providers: Peter Solis MD Referring MD: Michele Sanchez Medicines: Monitored Anesthesia Care Patient Profile: This is a 52 year old male. Refer to note in patient chart for documentation of history and physical. Last Colonoscopy: none. The patient's first colonoscopy is today. Complications: No immediate complications. Procedure: Pre-Anesthesia Assessment: - Prior to the procedure, a History and Physical was performed, and patient medications and allergies were reviewed. The patient's tolerance of previous anesthesia was also reviewed. The risks and benefits of the procedure and the sedation options and risks were discussed with the patient. All questions were answered, and informed consent was obtained. Prior Anticoagulants: The patient has taken aspirin, last dose was day of procedure. After reviewing the risks and benefits, the patient was deemed in satisfactory condition to undergo the procedure. After I obtained informed consent, the scope was passed under direct vision. Throughout the procedure, the patient's blood pressure, pulse, and oxygen saturations were monitored continuously. The colonoscope was introduced through the anus and advanced to the cecum, identified by appendiceal orifice and ileocecal valve. The colonoscopy was performed without difficulty. The patient tolerated the procedure well. The quality of the bowel preparation was good. Scope In: 7:37:52 AM Scope Withdrawal Time 0 hours 6 minutes 58 seconds Scope Out: 7:48:51 AM Total Procedure Duration Time 0 hours 10 minutes 59 seconds Findings: A diminutive polyp was found in the rectum. The polyp was sessile. The polyp was removed with a hot snare. Resection and retrieval were complete. Verification of patient identification for the specimen was done. Estimated blood loss was minimal. The exam was otherwise without abnormality on direct and retroflexion views. Impression: - One diminutive polyp in the rectum, removed with a hot snare. Resected and retrieved. - The examination was otherwise normal on direct and retroflexion views. Recommendation: - Discharge patient to home. - Resume previous diet. - Continue present medications. - Await pathology results. - Repeat colonoscopy in 10 years for surveillance. Procedure Code(s): --- Professional --- 99887, Colonoscopy, flexible; with removal of tumor(s), polyp(s), or other lesion(s) by snare technique Diagnosis Code(s): --- Professional --- Z12.11, Encounter for screening for malignant neoplasm of colon K62.1, Rectal polyp CPT copyright 2017 [employer]. All rights reserved. The codes documented in this report are preliminary and upon qualitative researcher review may be revised to meet current compliance requirements. Peter Solis MD 10/07/2022 7:55:40 AM This report has been signed electronically. Number of Addenda: 0 Note Initiated On: 10/07/2022 7:22 AM
--- NOTE | 2022-10-07 07:56 | OP.CCLET_ITS ---
10/07/2022 Michele Sanchez Re : Colonoscopy procedure for Tk Tamez Dear Daniel This procedure was performed on Friday, October 07, 2022. My impressions and recommendations are as follows: Impressions : - One diminutive polyp in the rectum, removed with a hot snare. Resected and retrieved. - The examination was otherwise normal on direct and retroflexion views. Recommendations : - Discharge patient to home. - Resume previous diet. - Continue present medications. - Await pathology results. - Repeat colonoscopy in 10 years for surveillance. My findings are described in the full procedure note, which is enclosed. If I can be of further assistance, please feel free to contact me at Doctor phone number(s): , Work: . Sincerely, Peter Solis MD 10/07/2022 7:55:40 AM This report has been signed electronically.
[2022-10-07 08:00] VITALS: BP 100/71; BP 123/70; PULSE 72; RESP 16; O2SAT 97
[2022-10-07 08:05] VITALS: BP 123/70; BP 99/73; PULSE 71; RESP 16; O2SAT 97
[2022-10-07 08:10] VITALS: BP 104/77; BP 123/70; PULSE 67; RESP 16; TEMP 36.9; O2SAT 96
[2022-10-07 08:46] VITALS: BP 123/70
== END 2022-10-07 08:56 | disposition home or self-care (01) ==
LOC: EN 06:41 → AC 06:42
PROVIDERS: PCP Family Medicine; Referring Provider Family Medicine; Visit Provider Surgery
PROC: 0DJD8ZZ Inspection of Lower Intestinal Tract, Via Natural or Artificial Opening Endoscopic (ICD-10-PCS; CPT 45378; principal; 2022-10-07 07:25)
DX: Z12.11 Encounter for screening for malignant neoplasm of colon (principal); E11.9 Type 2 diabetes mellitus without complications; K62.1 Rectal polyp; M81.0 Age-related osteoporosis without current pathological fracture; Z79.82 Long term (current) use of aspirin; Z79.84 Long term (current) use of oral hypoglycemic drugs; Z79.899 Other long term (current) drug therapy; Z87.891 Personal history of nicotine dependence; Z80.0 Family history of malignant neoplasm of digestive organs
CPT/HCPCS: 45385; 82962; 88305; J7120; J2405

== ENCOUNTER → 2022-10-15 | Outpatient (CLI) | payer SELFPAY, OTHER ==
--- NOTE | 2022-10-15 08:58 | US_ITS ---
EXAM: US ABDOMEN COMPLETE CLINICAL INDICATION: screening for liver ca; hemochromatosis TECHNIQUE: Real-time ultrasound of the abdomen with image documentation. This report was created using [employer] report generation technology. COMPARISON: None. FINDINGS: LIVER: Liver echogenicity is coarsened within normal consistent with diffuse parenchymal liver disease. No space-occupying lesions within the liver. No intrahepatic biliary ductal dilation. GALLBLADDER: Normal. No shadowing gallstone. No gallbladder wall thickening is demonstrated. No pericholecystic fluid. Negative sonographic Garcia''s sign. COMMON BILE DUCT: Unremarkable as visualized. The proximal common bile duct is within normal limits for the patient''s age. PANCREAS: Unremarkable as visualized. No focal abnormality is demonstrated in the pancreas. No pancreatic ductal dilatation. KIDNEYS: Normal. There is no hydronephrosis. No shadowing calculus. No focal lesion or perinephric collection is demonstrated. SPLEEN: Spleen is enlarged measuring 18 cm in cephalocaudad dimension. AORTA: Normal. Submitted longitudinal images of the intra-abdominal aorta demonstrate no gross abnormalities and are unremarkable. INFERIOR VENA CAVA: Normal. The IVC is patent. FREE FLUID: There is no free fluid. US/Abdomen Complete IMPRESSION: 1. Parenchymal liver disease. 2. Splenomegaly. Electronically Signed: Mamadou Muse MD at 10:36 EST ,
[2022-10-15 09:36] LABS: Absolute Lymphocyte Count 1.22 X10^3/uL (0.83-4.51); Absolute Neutrophil Count 2.6 X10^3/uL (2.0-7.7); Basophil# 0.03 X10^3/uL; Basophil% 0.7 % (0-1); Eosinophil# 0.16 X10^3/uL; Eosinophils% 3.5 % (0-5); Hematocrit 35.3 % (40-54); Hemoglobin 12.9 g/dL (13.0-16.5); Lymphocyte # 1.22 X10^3/ul (0.83-4.51); Lymphocyte % 26.6 % (19-41); Mean Corp Hgb Conc 36.5 g/dL (32-36); Mean Corpuscular Volume 98.6 fL (80-94); Mean Platelet Vol. 10.1 fl (6.2-12.0); Monocyte# 0.53 X10^3/uL; Monocyte% 11.5 % (0-10); NRBC Flagged by Analyzer 0 % (0-5); Neutrophil # 2.61 X10^3/uL (2.7-7.7); Neutrophil % 56.8 % (47-70); Platelet Count 114 K/mm3 (150-450); RBC Distribution Width CV 13.7 % (11.6-14.6); RBC Distribution Width SD 49.4 fl (35.1-43.9); Red Blood Count 3.58 M/mm3 (4.6-6.2); White Blood Count 4.6 K/mm3 (4.4-11.0)
[2022-10-15 10:07] LABS: ALB/GLOB Ratio 1.1 RATIO (0.9-2.4); AST(SGOT) 15 U/L (15-37); Alanine Aminotransfer ALT/SGPT 34 U/L (16-61); Albumin, Serum 3.9 g/dL (3.2-5.0); Alkaline Phosphatase 64 U/L (45-117); Anion Gap 5 (5-15); BUN 16 mg/dL (7-18); BUN/Creat Ratio 23.8 RATIO (10-20); Calcium,Total 8.8 mg/dL (8.5-10.1); Chloride 102 mmol/L (98-107); Creatinine, Serum 0.67 mg/dL (0.70-1.30); EST Glomerular Filtration Rate 132 mL/min (>60); Est Glom Filt Rate - Afr Amer 159 mL/min (>60); Ferritin 50 ng/mL (26-388); Globulin 3.7 g/dL (2.2-4.2); Glucose 247 mg/dL (74-106); Iron 198 ug/dL (65-175); Iron Binding Capacity,Total 312 ug/dL (250-450); Magnesium 1.7 mg/dL (1.6-2.6); PERCENT IRON SATURATION 63.5 % (15.0-55.0); Potassium 4.1 mmol/L (3.5-5.1); Protein, Total 7.6 g/dL (6.4-8.2); Sodium Level 136 mmol/L (136-145); Thyroid Stim Hormone (TSH) 2.31 uIU/mL (0.358-3.74)
[2022-10-16 10:46] LABS: AFP, Tumor Marker < 1.8 ng/mL (0.0-8.4)
[2022-10-17 09:50] LABS: Vitamin D,25 Hydroxy 60.4 ng/mL
== END | disposition home or self-care (01) ==
PROVIDERS: PCP Family Medicine; Referring Provider Nurse Practitioner Family; Visit Provider Nurse Practitioner Family
DX: M81.0 Age-related osteoporosis without current pathological fracture (principal); E83.110 Hereditary hemochromatosis; E55.9 Vitamin D deficiency, unspecified
CPT/HCPCS: 36415; 76700; 80053; 82105; 82306; 82728; 83540; 83550; 83735; 83970; 84443; 85025

== ENCOUNTER → 2022-11-03 | Outpatient (CLI) | payer OTHER, SELFPAY ==
[2022-11-03 15:41] VITALS: BMI 30.1
[2022-11-03] MEDS: Zoledronic Acid 5 MG 100 ML 300 MG IV (15:41)
[2022-11-03 15:59] VITALS: BP 111/66; PULSE 79; RESP 14; TEMP 36.3; O2SAT 99
== END | disposition home or self-care (01) ==
LOC: MEDOUTP 14:30
PROVIDERS: PCP Family Medicine; Referring Provider Nurse Practitioner Adult Health; Visit Provider Nurse Practitioner Adult Health
DX: M81.8 Other osteoporosis without current pathological fracture (principal)
CPT/HCPCS: 96365; J3489

== ENCOUNTER → 2023-01-31 | Outpatient (CLI) | payer SELFPAY ==
[2023-01-31 11:48] LABS: AST(SGOT) 28 U/L (15-37); Alanine Aminotransfer ALT/SGPT 41 U/L (16-61); Albumin, Serum 3.8 g/dL (3.2-5.0); Alkaline Phosphatase 66 U/L (45-117); Anion Gap 4 (5-15); BUN 24 mg/dL (7-18); BUN/Creat Ratio 35.1 RATIO (10-20); Calcium,Total 9.7 mg/dL (8.5-10.1); Chloride 102 mmol/L (98-107); Creatinine, Serum 0.68 mg/dL (0.70-1.30); EST Glomerular Filtration Rate 129 mL/min (>60); Est Glom Filt Rate - Afr Amer 156 mL/min (>60); Globulin 3.9 g/dL (2.2-4.2); Glucose 139 mg/dL (74-106); Potassium 4.3 mmol/L (3.5-5.1); Protein, Total 7.7 g/dL (6.4-8.2); Sodium Level 136 mmol/L (136-145)
[2023-01-31 12:24] LABS: Hemoglobin A1c 7.3 % (3.8-5.6)
== END | disposition home or self-care (01) ==
PROVIDERS: PCP Family Medicine; Referring Provider Nurse Practitioner Adult Health; Visit Provider Nurse Practitioner Adult Health
DX: E11.65 Type 2 diabetes mellitus with hyperglycemia (principal)
CPT/HCPCS: 36415; 80053; 83036

== ENCOUNTER → 2023-04-14 | Outpatient (CLI) | payer SELFPAY ==
[2023-04-14 08:09] LABS: AST(SGOT) 26 U/L (15-37); Alanine Aminotransfer ALT/SGPT 36 U/L (16-61); Albumin, Serum 3.9 g/dL (3.2-5.0); Alkaline Phosphatase 67 U/L (45-117); Anion Gap 7 (5-15); BUN 23 mg/dL (7-18); BUN/Creat Ratio 36.5 RATIO (10-20); Chloride 104 mmol/L (98-107); Creatinine, Serum 0.63 mg/dL (0.70-1.30); EST Glomerular Filtration Rate 142 mL/min (>60); Est Glom Filt Rate - Afr Amer 171 mL/min (>60); Globulin 3.8 g/dL (2.2-4.2); Glucose 143 mg/dL (74-106); Potassium 4.2 mmol/L (3.5-5.1); Protein, Total 7.7 g/dL (6.4-8.2); Sodium Level 140 mmol/L (136-145)
[2023-04-14 08:48] LABS: Hemoglobin A1c 6.4 % (3.8-5.6)
== END | disposition home or self-care (01) ==
PROVIDERS: PCP Family Medicine
DX: E11.65 Type 2 diabetes mellitus with hyperglycemia (principal)
CPT/HCPCS: 36415; 80053; 83036

== ENCOUNTER → 2023-10-17 | Outpatient (CLI) | payer OTHER, SELFPAY ==
[2023-10-17 09:20] LABS: Vitamin D,25 Hydroxy 86.6 ng/mL
[2023-10-17 10:00] LABS: ALB/GLOB Ratio 0.9 RATIO (0.9-2.4); AST(SGOT) 22 U/L (15-37); Alanine Aminotransfer ALT/SGPT 35 U/L (16-61); Albumin, Serum 3.7 g/dL (3.2-5.0); Alkaline Phosphatase 73 U/L (45-117); Anion Gap 5 (5-15); BUN 24 mg/dL (7-18); BUN/Creat Ratio 33.6 RATIO (10-20); Calcium,Total 9.3 mg/dL (8.5-10.1); Chloride 103 mmol/L (98-107); Cholesterol 135 mg/dL (200); Creatinine, Serum 0.71 mg/dL (0.70-1.30); EST Glomerular Filtration Rate 122 mL/min (>60); Est Glom Filt Rate - Afr Amer 148 mL/min (>60); Glucose 147 mg/dL (74-106); High Density Lipoprotein 50 mg/dL; Potassium 4.1 mmol/L (3.5-5.1); Protein, Total 7.7 g/dL (6.4-8.2); Sodium Level 135 mmol/L (136-145); Thyroid Stim Hormone (TSH) 2.38 uIU/mL (0.358-3.74); Triglycerides 65 mg/dL; Very Low Density Lipoprotein 13 mg/dL (5-40)
== END | disposition home or self-care (01) ==
LOC: LAB 08:24
PROVIDERS: PCP Family Medicine; Referring Provider Internal Medicine Endocrinology, Diabetes & Metabolism; Visit Provider Internal Medicine Endocrinology, Diabetes & Metabolism
DX: M81.8 Other osteoporosis without current pathological fracture (principal); E55.9 Vitamin D deficiency, unspecified; E78.2 Mixed hyperlipidemia; E04.9 Nontoxic goiter, unspecified
CPT/HCPCS: 36415; 80053; 80061; 82306; 84443

== ENCOUNTER 2024-01-02 15:09 | Outpatient (CLI) | payer OTHER, SELFPAY ==
[2024-01-02 15:56] VITALS: BP 105/62; PULSE 90; RESP 16; TEMP 36.2; O2SAT 95
[2024-01-02] MEDS: 0.9% NaCl Peripheral Flush Adult/Peds IV (16:11)
[2024-01-02] MEDS: Zoledronic Acid 5 MG 100 ML 300 MG IV (16:11)
[2024-01-02 16:34] VITALS: BP 92/55; PULSE 70; RESP 16; O2SAT 95
== END 2024-01-02 15:10 | disposition home or self-care (01) ==
LOC: MEDOUTP 15:12
PROVIDERS: PCP Family Medicine
DX: M81.8 Other osteoporosis without current pathological fracture (principal)
CPT/HCPCS: 96365; A4216; J3489

== ENCOUNTER → 2024-01-02 | Outpatient (CLI) | payer SELFPAY, OTHER ==
--- NOTE | 2024-01-02 07:10 | US_ITS ---
STUDY: ABDOMINAL ULTRASOUND - RIGHT UPPER QUADRANT REASON FOR VISIT: Male, 53 years old HEMOCHROMATOSIS, SCREEN FOR HCC TECHNIQUE: Ultrasound evaluation of the right upper quadrant was performed with real-time and static lorenzo-scale imaging. TECHNICAL QUALITY: Adequate. COMPARISON: Comparison is made with prior study dated October 15, 2022. FINDINGS: Liver: The liver measures 14.1 cm. There is a heterogeneous echogenicity of the liver. The bile ducts are within normal limits. There is hepatic color flow. The direction of portal flow is hepatopetal. There is no demonstrated mass lesion. Gallbladder: Normal distended gallbladder. The gallbladder wall measures 2 mm. There is a negative sonographic Garcia''s sign. There is no pericholecystic fluid. There are no gallstones. Sludge is seen within the gallbladder lumen. Common Bile Duct (C.B.D.): The common bile duct measures 4 mm. Pancreas: There is nonvisualization of the pancreas due to overlying bowel gas. Right Kidney: Normal size of the right kidney. The right kidney measures 9.3 cm x 5.5 cm x 6.3 cm. Normal renal cortex. The right cortex measures 1.9 cm. There is no demonstrated renal mass or cyst. There is no right hydronephrosis. US/Liver IMPRESSION: Stable heterogeneous echotexture of the liver parenchyma. Stable examination. Small amount of sludge is seen in the gallbladder lumen. Electronically Signed: Maco Kilgore MD at 12:32 EST ,
--- OUTSIDE RECORDS SUMMARY | 2024-01-02 07:19 | XMS RPT_ITS | CCD ---
Author Name Unknown Address [address] [place] [address] Organization [facility] Care Team Providers Care Floor Space Allocator Name Role Phone Unavailable Primary Care Provider Unavailabl e Results Test Name Value Interpretation Reference Range Facil ity Encounters Encounter Date Encounter Type Care Provider Facility Start: 01-17-2020 End: 01-17-2020 Subsequent hospital visit by physician Charles Ashby Work Phone: [facility] Procedures Date Procedure Procedure Detail Performing Clinician Start: 01-17-2020 Ct lower extremity w /o contrast material Charles Ashby Work Phone: Plan of Treatment Date Care Activity Detail Author Start: 2020 Shingles Vaccine (1 of 2) Castro gles Vaccine (1 of 2) [place], [place] Start: 07-07-2019 Influenza vaccination Flu vaccine (# 1) [place], [place] Start: 2010 Lipid screen Lipid screen [place], [place] Start: 1989 DTaP/Tdap/Td vaccine (1 - Tdap) DTaP/Tdap/Td vaccine (1 - Tdap) [place], [place] Start: 1985 HIV screen HIV screen [place], [place] Social History Date Type Detail Facility Tobacco smoking status NHIS Unknown if ev er smoked [place], [place] Sex Assigned At Not on file [place], [place] Summary Purpose Family History No Family History Records Found Advance Directives Documents on File Type Date Recorded Patient Pharmacy Assistant Expl anation Advance Directives and Living Will Power of Hearing Aid Repairer Additional Source Comments (unrecognized sect ion and content) No Status Records Found INFORMATION SOURCE (unrecogn ized section and content) FOR RECORDS PERTAINING TO PATIENTS WHO ARE OR HAVE BEEN ENROLLED IN A CHEMICAL DEPENDENCY/SUBSTANCEABUSE PROGRAM, SOME INFORMATION MAY BE OMITTED. This clinical summary was aggregated from multiple sources. Caution should be exercised in using it in the provision of clinical care. This summary normalizes information from multiple sources, and as a consequence, information in this document may materially change the coding, format and clinical context of patient data. In addition, data may be omitted in some cases. CLINICAL DECISIONS SHOULD BE BASED ON THE PRIMARY CLINICAL RECORDS. [facility]. provides no warranty or guarantee of the accuracy or completeness of information in this document.
== END | disposition home or self-care (01) ==
PROVIDERS: PCP Family Medicine; Referring Provider Internal Medicine Hematology & Oncology; Visit Provider Internal Medicine Hematology & Oncology
DX: E83.119 Hemochromatosis, unspecified (principal)
CPT/HCPCS: 76705

== ENCOUNTER → 2024-12-17 | Outpatient (CLI) | payer OTHER, SELFPAY ==
--- NOTE | 2024-12-17 07:30 | US_ITS ---
EXAM: US Abdomen Limited, Right Upper Quadrant CLINICAL INDICATION: TECHNIQUE: Real-time ultrasound of the right upper quadrant with image documentation. COMPARISON: No relevant prior studies available. FINDINGS: LIVER: Liver measures up to 14.8 cm. Hepatopetal flow main portal vein. No intrahepatic bile duct dilation. GALLBLADDER: Unremarkable. No gallstones. COMMON BILE DUCT: Unremarkable as visualized. No stones. No dilation. Common bile duct measures 0.44 cm in diameter. PANCREAS: Unremarkable as visualized. RIGHT KIDNEY: Unremarkable. No stones. No hydronephrosis. The right kidney measures 0.6 x 5.9 x 5.9 cm. US/Liver IMPRESSION: No acute findings in the right upper quadrant. Reading Location: [facility]
[2024-12-17 09:07] LABS: Absolute Lymphocyte Count 1.12 X10^3/uL (0.83-4.51); Absolute Neutrophil Count 2.8 X10^3/uL (2.0-7.7); Basophil# 0.07 X10^3/uL; Basophil% 1.4 % (0-1); Eosinophil# 0.52 X10^3/uL; Eosinophils% 10.1 % (0-5); Hematocrit 38.8 % (40-54); Lymphocyte # 1.12 X10^3/ul (0.83-4.51); Lymphocyte % 21.7 % (19-41); Mean Corp Hgb Conc 36.1 g/dL (32-36); Mean Corpuscular Hgb 34.7 pg (27.0-32.0); Mean Platelet Vol. 10.2 fl (6.2-12.0); Monocyte% 11.7 % (0-10); NRBC Flagged by Analyzer 0 % (0-5); Neutrophil # 2.78 X10^3/uL (2.7-7.7); Neutrophil % 53.9 % (47-70); Platelet Count 125 K/mm3 (150-450); RBC Distribution Width CV 14.1 % (11.6-14.6); RBC Distribution Width SD 49.8 fl (35.1-43.9); Red Blood Count 4.04 M/mm3 (4.6-6.2); White Blood Count 5.2 K/mm3 (4.4-11.0)
[2024-12-17 09:20] LABS: ALB/GLOB Ratio 0.9 RATIO (0.9-2.4); AST(SGOT) 21 U/L (15-37); Alanine Aminotransfer ALT/SGPT 31 U/L (16-61); Albumin, Serum 3.8 g/dL (3.2-5.0); Alkaline Phosphatase 78 U/L (45-117); Anion Gap 5 (5-15); BUN 22 mg/dL (7-18); Calcium,Total 9.3 mg/dL (8.5-10.1); Chloride 105 mmol/L (98-107); Cholesterol 156 mg/dL (200); Creatinine, Serum 0.59 mg/dL (0.70-1.30); EST Glomerular Filtration Rate 151 mL/min (>60); Est Glom Filt Rate - Afr Amer 182 mL/min (>60); Ferritin 45 ng/mL (26-388); Globulin 4.2 g/dL (2.2-4.2); Glucose 163 mg/dL (74-106); High Density Lipoprotein 49 mg/dL; Iron 102 ug/dL (65-175); Iron Binding Capacity,Total 328 ug/dL (250-450); PERCENT IRON SATURATION 31.1 % (15.0-55.0); Sodium Level 138 mmol/L (136-145); Triglycerides 81 mg/dL; Very Low Density Lipoprotein 16 mg/dL (5-40)
[2024-12-17 11:30] LABS: Microalbumin,Random Urine < 5.0 mg/L (NO RANGE EST.)
[2024-12-18 08:09] LABS: AFP, Tumor Marker < 1.8 ng/mL (0.0-8.4)
== END | disposition home or self-care (01) ==
PROVIDERS: PCP Family Medicine; Referring Provider Internal Medicine Hematology & Oncology; Visit Provider Internal Medicine Hematology & Oncology
DX: E11.9 Type 2 diabetes mellitus without complications (principal); E04.9 Nontoxic goiter, unspecified; E78.2 Mixed hyperlipidemia; E83.110 Hereditary hemochromatosis
CPT/HCPCS: 36415; 76705; 80053; 80061; 82043; 82105; 82570; 82728; 83540; 83550; 84443; 85025

== ENCOUNTER 2025-01-28 13:50 | Outpatient (CLI) | payer OTHER, SELFPAY ==
[2025-01-28 14:14] VITALS: BP 109/68; PULSE 68; RESP 16; TEMP 36.2; O2SAT 96; BMI 30.1
[2025-01-28] MEDS: 0.9% NaCl Peripheral Flush Adult IV (14:17)
[2025-01-28] MEDS: 0.9% NaCl IVPB Med Flush (100mL) 15 ML IV (14:17)
[2025-01-28] MEDS: Zoledronic Acid 5 MG 100 ML 300 MG IV (14:17)
== END 2025-01-28 23:59 | disposition home or self-care (01) ==
LOC: MEDOUTP 13:50
PROVIDERS: PCP Family Medicine; Referring Provider Internal Medicine Endocrinology, Diabetes & Metabolism; Visit Provider Internal Medicine Endocrinology, Diabetes & Metabolism
DX: M81.8 Other osteoporosis without current pathological fracture (principal)
CPT/HCPCS: 96365; A4216; J3489